=== PATIENT | female | born 1975 | race American Indian/Alaskan Native ===

== ENCOUNTER 2020-11-11 17:24 | Emergency (ER) | payer OTHER ==
[2020-11-11] MEDS ORDERED: MORPHINE 4 MG/1 ML INJ IV NR (17:43)
[2020-11-11] MEDS ORDERED: ONDANSETRON 4 MG/2 ML INJ IV NR (17:43)
[2020-11-11 17:45] VITALS: BP 147/97
--- NOTE | 2020-11-11 17:57 | Event Note ---
ED Screening Note Date of service: 11/11/20 Time: 17:48 ED Screening Note: Patient complains of epi gastric pain radiating into her chest for the past 3 days History of PUD Also states nausea/vomiting/diarrhea This initial assessment/diagnostic orders/clinical plan/treatment(s) is/are subject to change based on patients health status, clinical progression and re- assessment by fellow clinical providers in the ED. Further treatment and workup at subsequent clinical providers discretion. Patient/guardian urged not to elope from the ED as their condition may be serious if not clinically assessed and managed. Initial orders include: Labs EKG Chest x-ray CT abdomen Meds
[2020-11-11 18:36] LABS: Basophils # (Auto) 0.1 K/mm3 (0.0-0.1); Basophils % (Auto) 0.6 % (0.0-1.8); Eosinophils # (Auto) 0.1 K/mm3 (0.0-0.4); Eosinophils % (Auto) 0.6 % (0.0-4.3); Hematocrit 42.7 % (30.3-42.9); Hemoglobin 13.9 gm/dl (10.1-14.3); Lymphocytes # (Auto) 1.6 K/mm3 (1.2-5.4); Lymphocytes % (Auto) 14.4 % (13.4-35.0); Mean Corpuscular HGB Conc 33 % (30-34); Mean Corpuscular Volume 80 fl (79-97); Monocytes # (Auto) 1.7 K/mm3 (0.0-0.8); Monocytes % (Auto) 15.5 % (0.0-7.3); Red Blood Count 5.35 M/mm3 (3.65-5.03); Red Cell Distribution Width 15.9 % (13.2-15.2)
[2020-11-11 18:40] LABS: Platelet Count 185 K/mm3 (140-440)
[2020-11-11] MEDS ORDERED: LIDOCAINE VISCOUS 2% 15 ML ORAL LIQD PO ONE (19:15)
[2020-11-11] MEDS ORDERED: ONDANSETRON 4 MG ODT TAB PO ONE (19:15)
[2020-11-11] MEDS ORDERED: ALUM-MAG HYDROXIDE-SIMETHICONE 200-200-20MG/5ML ORAL LIQD 30 ML PO ONE (19:15)
[2020-11-11 19:18] LABS: Alanine Aminotransferase 14 units/L (7-56); Albumin 4.2 g/dL (3.9-5); BUN/Creatinine Ratio 11; Blood Urea Nitrogen 10 mg/dL (7-17); Calcium 9.7 mg/dL (8.4-10.2); Hemolysis Index 9
--- NOTE | 2020-11-11 19:18 | XRay Report ---
CHEST 2 VIEWS INDICATION / CLINICAL INFORMATION: chest pain. COMPARISON: None available. FINDINGS: SUPPORT DEVICES: None. HEART / MEDIASTINUM: No significant abnormality. LUNGS / PLEURA: No significant pulmonary or pleural abnormality. No pneumothorax. ADDITIONAL FINDINGS: No significant additional findings. IMPRESSION: 1. No acute findings. Signer Name: Erin Deluca MD Signed: 11/11/2020 7:14 PM Workstation Name: [id number]
--- NOTE | 2020-11-11 19:22 | Emergency Department Report ---
ED Abdominal Pain HPI - General Chief Complaint: Chest Pain Stated Complaint: CHEST PAIN, VOMITING SOB PUI?: No Time Seen by Provider: 11/11/20 17:56 Source: patient Mode of arrival: Ambulatory Limitations: No Limitations - History of Present Illness Initial Comments: CC: "It just sits here. I can not eat." HPI: This is a 45 yo female with hx of HTN, PUD who presents with epigastric pain and vomiting. She was evaluated at clinic yesterday for similar symptoms. Prescribed omeprazole Zofran and dicyclomine. 10 years ago patient underwent 14-day therapy for peptic ulcer disease. Symptoms resolved. Every once a month he had episode of early satiety and vomiting with the wrong foods. Since Saturday night she has had persistent epigastric gnawing pain worse with intake. She has vomiting. She has had poor appetite. Prescribed medications from yesterday's clinic visit did not provide any relief. MD Complaint: abdominal pain -: Gradual, days(s) (3 days ago Saturday) Location: epigastric Radiation: none Migration to: no migration Severity: moderate Severity scale (0 -10): 7 Quality: aching, fullness, dull Consistency: constant Improves With: nothing Worsens With: eating Context: other (History of peptic ulcer disease recent clinic visit on yesterday) Associated Symptoms: nausea, vomiting - Related Data Allergies Allergy/AdvReac Type Severity Reaction Status Date / Time No Known Allergies Allergy Verified 11/11/20 17:59 ED Review of Systems ROS: Stated complaint: CHEST PAIN, VOMITING SOB Other details as noted in HPI Comment: All other systems reviewed and negative Constitutional: denies: fever, malaise Cardiovascular: denies: chest pain Gastrointestinal: abdominal pain, nausea, diarrhea Neurological: denies: headache ED Past Medical Hx - Past Medical History Previous Medical History?: Yes Hx Hypertension: Yes Additional medical history: Peptic ulcer disease - Social History Smoking Status: Current Some Day Smoker ED Physical Exam - General Limitations: No Limitations General appearance: alert, in no apparent distress - Head Head exam: Present: atraumatic, normocephalic - Eye Eye exam: Present: normal appearance - ENT ENT exam: Present: mucous membranes moist - Neck Neck exam: Present: normal inspection, full ROM - Respiratory Respiratory exam: Present: normal lung sounds bilaterally. Absent: respiratory distress, wheezes, rales, rhonchi - Cardiovascular Cardiovascular Exam: Present: regular rate, normal rhythm, normal heart sounds. Absent: systolic murmur, diastolic murmur, rubs, gallop - GI/Abdominal GI/Abdominal exam: Present: soft, normal bowel sounds. Absent: distended, tenderness, guarding, rebound - Extremities Exam Extremities exam: Present: normal inspection - Neurological Exam Neurological exam: Present: alert, oriented X3 - Psychiatric Psychiatric exam: Present: normal affect, normal mood - Skin Skin exam: Present: warm, dry, intact, normal color. Absent: rash ED Course Vital Signs 11/11/20 17:44 Temperature 98.8 F Pulse Rate 66 Respiratory 20 Rate Blood Pressure 147/97 O2 Sat by Pulse 99 Oximetry ED Medical Decision Making - Lab Data Result diagrams: 11/11/20 18:01 11/11/20 18:01 Laboratory Results - last 24 hr 11/11/20 11/11/20 11/11/20 18:01 18:01 18:01 WBC 11.1 H RBC 5.35 H Hgb 13.9 Hct 42.7 MCV 80 MCH 26 L MCHC 33 RDW 15.9 H Plt Count 185 Lymph % (Auto) 14.4 [place] % (Auto) 15.5 H Eos % (Auto) 0.6 Baso % (Auto) 0.6 Lymph # (Auto) 1.6 [place] # (Auto) 1.7 H Eos # (Auto) 0.1 Baso # (Auto) 0.1 Seg Neutrophils % 68.9 Seg Neutrophils # 7.6 Sodium 135 L Potassium 3.1 L Chloride 101.3 Carbon Dioxide 22 Anion Gap 15 BUN 10 Creatinine 0.9 Estimated GFR > 60 BUN/Creatinine Ratio 11 Glucose 106 H Calcium 9.7 Total Bilirubin 0.40 AST 19 ALT 14 Alkaline Phosphatase 68 Troponin T < 0.010 < 0.010 Total Protein 7.7 Albumin 4.2 Albumin/Globulin Ratio 1.2 Lipase HCG, Qual 11/11/20 11/11/20 18:01 18:01 WBC RBC Hgb Hct MCV MCH MCHC RDW Plt Count Lymph % (Auto) [place] % (Auto) Eos % (Auto) Baso % (Auto) Lymph # (Auto) [place] # (Auto) Eos # (Auto) Baso # (Auto) Seg Neutrophils % Seg Neutrophils # Sodium Potassium Chloride Carbon Dioxide Anion Gap BUN Creatinine Estimated GFR BUN/Creatinine Ratio Glucose Calcium Total Bilirubin AST ALT Alkaline Phosphatase Troponin T Total Protein Albumin Albumin/Globulin Ratio Lipase 12 L HCG, Qual Negative - EKG Data EKG shows normal: sinus rhythm, axis, intervals, QRS complexes, ST-T waves Rate: normal - EKG Data Interpretation: LVH 11/11/20 19:22 EKG obtained 1731 EKG interpreted by me Rate 70 bpm normal axis normal intervals no ST elevation positive LVH poor R wave progression anterior leads. - Radiology Data Radiology results: report reviewed Chest radiograph sno acute findings according to radiology report - Medical Decision Making Clinical impression: Peptic ulcer disease. Patient received p.o. Maalox, p.o. viscous lidocaine, Zofran ODT in the emergency department. I recommended using the medications as prescribed including dicyclomine, Zofran, omeprazole. Recommended clear liquid diet. EKG without ischemic changes. Lipase CBC within normal limits. hCG negative. Chemistry within normal limits with exception of mild hypokalemia Chest radiograph no acute findings Critical care attestation.: If time is entered above; I have spent that time in minutes in the direct care of this critically ill patient, excluding procedure time. ED Disposition Clinical Impression: Peptic ulcer disease Disposition: HOME / SELF CARE / HOMELESS Is pt being admited?: No Does the pt Need Aspirin: No Condition: Stable Instructions: Peptic Ulcer, [id number] Referrals: JIM MCKINNON MD [Staff Physician] - 3-5 Days
[2020-11-11] MEDS ORDERED: ACETAMINOPHEN 325 MG/10.15 ML ORAL LIQD UNIT DOSE PO ONE (19:24)
--- NOTE | 2020-11-14 09:42 | Electrocardiograph Report ---
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
== END 2020-11-11 20:40 | disposition home or self-care (01) ==
LOC: ED 17:24
DX: K27.9 Peptic ulcer, site unspecified, unspecified as acute or chronic, without hemorrhage or perforation (principal); I10 Essential (primary) hypertension; F17.200 Nicotine dependence, unspecified, uncomplicated
CPT/HCPCS: 36415; 71046; 80053; 83690; 84484; 84703; 85025; 93005; 99283; Q0162